=== PATIENT | female | born 1930 | race Caucasian/White ===

== ENCOUNTER 2017-12-27 07:24 | Outpatient (CLI) | payer MEDICARE, BC | END 2017-12-27 07:25 | disposition critical access hospital (66) | LOC: EMS 07:24 | PROVIDERS: ATTEND Surgery | DX: R04.2 Hemoptysis (principal) | CPT/HCPCS: A0425; A0429 ==

== ENCOUNTER 2017-12-27 07:42 | Emergency (ER) | payer MEDICARE, BC ==
--- NOTE | 2017-12-27 07:55 | ED Physician Documentation ---
History of Present Illness - Stated complaint Stated Complaint: COUGHED UP BLOOD - History obtained from History obtained from: Patient, EMS - History of Present Illness Timing: Today - Additonal information Additional information: 87-year-old female with advanced dementia as coughed up some blood this morning and her asked that she be brought in for evaluation. The patient is not of any help to the history. Review of Systems Unable to obtain: Dementia Constitutional: denies: Fever PD PAST MEDICAL HISTORY - Past Medical History Cardiovascular: Hypertension, High cholesterol Respiratory: None Neuro: Dementia, Other Endocrine/Autoimmune: None GI: None : None HEENT: Chronic vision loss Psych: None Musculoskeletal: Osteoarthritis Derm: None - Past Surgical History Past Surgical History: Yes General: Appendectomy Ortho: Hip replacement /[employer]: Hysterectomy, Other Derm: Other - Present Medications Home Medications: Ambulatory Orders Medication Instructions Recorded Confirmed Aspirin Chewable [[place] 81 mg PO DAILY 08/03/16 08/03/16 Aspirin] Multivitamin [Theragran] 1 tab PO DAILY 08/03/16 08/03/16 amLODIPine [Norvasc] 2.5 mg PO DAILY 08/03/16 08/03/16 Acetaminophen [Tylenol] 650 mg PO Q6H PRN 12/27/17 12/27/17 Bisacodyl Supp [Dulcolax Supp] 12/27/17 Polyethylene Glycol 3350 17 gm PO UD 12/27/17 12/27/17 - Allergies Allergies/Adverse Reactions: Allergies Allergy/AdvReac Type Severity Reaction Status Date / Time hydrocodone Allergy Intermediate Nausea Verified 12/27/17 08:16 tramadol AdvReac Intermediate Dizziness Verified 12/27/17 08:16 - Social History Does the pt smoke?: No Smoking Status: Former smoker Does the pt drink ETOH?: Yes Does the pt have substance abuse?: No - Immunizations Immunizations are current?: Yes - POLST Patient has POLST: No PD ED PE NORMAL - Vitals Vital signs reviewed: Yes - General General: No acute distress, Well developed/nourished, Other (happy go [place] and speaks a little Malian for us. ) - HEENT HEENT: Atraumatic, PERRL - Neck Neck: Supple, no meningeal sign, Other (There is dried blood from the anterior nares bilaterally worse on the left than the right) - Cardiac Cardiac: RRR, Other (2 out of 6 holosystolic murmur at the left sternal border) - Respiratory Respiratory: No respiratory distress, Clear bilaterally - Abdomen Abdomen: Soft, Non tender - Derm Derm: Normal color, Warm and dry, No rash - Extremities Extremities: No deformity, No edema - Neuro Neuro: No motor deficit, No sensory deficit Eye Opening: Spontaneous Motor: Obeys Commands Verbal: Confused GCS Score: 14 - Psych Psych: Normal mood, Normal affect Results - Vitals Vitals: Vital Signs - 24 hr 12/27/17 07:38 Temperature 36.7 C Heart Rate 86 Respiratory 16 Rate Blood Pressure 147/95 H O2 Saturation 98 Oxygen O2 Source Room air - Labs Labs: Laboratory Tests 12/27/17 12/27/17 12/27/17 09:14 09:14 09:14 WBC 5.4 RBC 4.07 L Hgb 12.0 Hct 35.6 L MCV 87.5 MCH 29.4 MCHC 33.6 RDW 15.6 H Plt Count 293 MPV 7.7 L Neut # 3.5 Lymph # 1.1 L Whitman # 0.6 Eos # 0.2 Baso # 0.0 Absolute Nucleated RBC 0.00 Nucleated RBC % 0.0 Sodium 137 Potassium 3.6 Chloride 101 Carbon Dioxide 27 Anion Gap 9.0 BUN 10 Creatinine 0.5 Estimated GFR (MDRD) 117 Glucose 90 Calcium 8.8 Total Bilirubin 0.7 AST 16 ALT 12 Alkaline Phosphatase 93 Troponin I < 0.04 Total Protein 7.3 Albumin 2.8 L Globulin 4.5 H Albumin/Globulin Ratio 0.6 L Lipase 12 L - Rads (name of study) 2 veiw chest Radiology: Prelim report reviewed (Impression: No definite acute findings by chest x-ray. If hemoptysis persists consider chest CT.), EMP read indepedently , See rad report PD MEDICAL DECISION MAKING - ED course Complexity details: reviewed results, re-evaluated patient, considered differential, d/w patient, d/w family ED course: 87-year-old female has coughed up some blood this morning and has evidence of recent epistaxis in the anterior nasal septum. I suspect this is the reason for her hemoptysis her chest x-ray is without evidence of abnormality to account for hemoptysis Departure - Departure Disposition: 01 Home, Self Care Clinical Impression: Epistaxis Condition: Stable Instructions: ED Nosebleed Follow-Up: Cheo Bobby MD [Primary Care Provider] - Discharge Date/Time: 12/27/17 11:01
[2017-12-27 08:07] VITALS: BP 147/95
--- NOTE | 2017-12-27 08:45 | XRAY Report ---
EXAM: CHEST RADIOGRAPHY EXAM DATE: 12/27/2017 08:26 AM. CLINICAL HISTORY: Hemoptysis. COMPARISON: 08/03/2016. TECHNIQUE: 2 views. FINDINGS: Lungs/Pleura: No focal opacities evident. No pleural effusion. No pneumothorax. Normal volumes. Mediastinum: Heart appears enlarged in size some of which is due to the AP portable technique. Other: Chronic deformity right humeral head. Degenerative and vertebral plasty changes in the spine. Question prior breast surgery IMPRESSION: No definite acute findings by chest x-ray. If hemoptysis persists consider chest CT. [facility] Referring Provider Line: [phone] SITE ID: [id number]
[2017-12-27 09:25] LABS: BASOPHILS % (AUTO) 0.3 %; EOSINOPHILS # (AUTO) 0.2 10^3/uL (0.0-0.7); EOSINOPHILS % (AUTO) 2.9 %; LYMPHOCYTES # (AUTO) 1.1 10^3/uL (1.5-3.5); LYMPHOCYTES % (AUTO) 20.4 %; MEAN CORPUSCULAR HEMOGLOBIN 29.4 pg (27.0-31.0); MEAN CORPUSCULAR HGB CONC 33.6 g/dL (32.0-36.0); MEAN CORPUSCULAR VOLUME 87.5 fL (81.0-99.0); MEAN PLATELET VOLUME 7.7 fL (7.9-10.8); MONOCYTES # (AUTO) 0.6 10^3/uL (0.0-1.0); NEUTROPHILS # (AUTO) 3.5 10^3/uL (1.5-6.6); NEUTROPHILS % (AUTO) 65.4 %; PLT - PLATELET COUNT 293 10^3/uL (130-450); RED BLOOD COUNT 4.07 10^6/uL (4.20-5.40); RED CELL DISTRIBUTION WIDTH 15.6 % (12.0-15.0); WHITE BLOOD COUNT 5.4 x10^3/uL (4.8-10.8)
[2017-12-27 09:41] LABS: ALBUMIN 2.8 g/dL (3.2-5.5); ALBUMIN/GLOBULIN RATIO 0.6 (1.0-2.2); BILIRUBIN,TOTAL 0.7 mg/dL (0.2-1.0); CALCIUM 8.8 mg/dL (8.5-10.3); CREATININE 0.5 mg/dL (0.4-1.0); TOTAL PROTEIN 7.3 g/dL (6.7-8.2)
== END 2017-12-27 11:01 | disposition home or self-care (01) ==
LOC: EDUNIT# → ED 07:42
DX: R04.2 Hemoptysis (principal); R04.0 Epistaxis; F03.90 Unspecified dementia, unspecified severity, without behavioral disturbance, psychotic disturbance, mood disturbance, and anxiety; E78.00 Pure hypercholesterolemia, unspecified; M19.90 Unspecified osteoarthritis, unspecified site; Z79.82 Long term (current) use of aspirin; Z87.891 Personal history of nicotine dependence
CPT/HCPCS: 36415; 71046; 80053; 83690; 84484; 85025; 99283; 99284